=== PATIENT | male | born 1940 ===

== ENCOUNTER 2019-10-28 09:50 | Emergency (ER) | payer OTHER ==
[~2019-10-28] VITALS: Ht 170.2 cm; Wt 67.1 kg
[2019-10-28] MEDS ORDERED: JANUMET 50-1,01 EACH (10:04)
[2019-10-28] MEDS ORDERED: LIPOFEN150 MG (10:05)
[2019-10-28] MEDS ORDERED: ZETIA10 MG (10:05)
[2019-10-28] MEDS ORDERED: ZYLOPRIM100 M1 (10:05)
[2019-10-28] MEDS ORDERED: FOLIC ACID0.8 M1 (10:06)
[2019-10-28] MEDS ORDERED: ICAPS AREDS2 T1 EACH (10:07)
== END 2019-10-28 12:45 | disposition home or self-care (01) ==
LOC: ER 09:50
DX: S70.01XA Contusion of right hip, initial encounter (principal); W18.09XA Striking against other object with subsequent fall, initial encounter; Y93.89 Activity, other specified; Y92.89 Other specified places as the place of occurrence of the external cause; Y99.8 Other external cause status